=== PATIENT | female | born 1945 | race Caucasian/White ===

== ENCOUNTER 2017-10-15 07:32 | Emergency (ER) | payer OTHER, MEDICARE ==
[~2017-10-15] VITALS: Ht 147.3 cm; Wt 53.1 kg
[2017-10-15 07:36] VITALS: BP 121/77
[2017-10-15 08:09] LABS: MEAN CORPUSCULAR HGB 30.3 PG (27.0-31.0)
[2017-10-15 08:12] LABS: HEMATOCRIT 39.9 % (37-47); MEAN CORPUSCULAR HGB CONC 32.3 G/DL (33.0-37.0); MEAN PLATELET VOLUME 7.7 FL (7.4-10.4); PLATELET COUNT 78 /CUMM (130-400); RBC DISTRIBUTION WIDTH 13.1 % (11.5-14.5); RED BLOOD CELL CT 4.25 /CUMM (4.20-5.40)
[2017-10-15 08:18] LABS: WHITE BLOOD CELL COUNT 55.6 /CUMM (4.8-10.8)
--- NOTE | 2017-10-15 08:55 | ED HEAD/FACIAL INJ COMPLAINT ---
History of Present Illness General Chief Complaint: Fall Stated Complaint: FALL 30MINS PRIOR +HEADSTRIKE -LOC Source: patient, family, old records, Epic Exam Limitations: no limitations Vital Signs & Intake/Output Vital Signs & Intake/Output Vital Signs Date Time Temp Pulse Resp B/P B/P Pulse O2 O2 Flow FiO2 Mean Ox Delivery Rate 10/15 0904 98.6 05/ 0736 98.6 86 18 121/77 98 Room Air Allergies Coded Allergies: NO KNOWN ALLERGIES (12/01/10) Triage Note: 71 YO FEAMLE TO TRIAGE C/O FALL OUT OF BED THIS AM. STATES +HEADSTRIKE. DENIES LOC. C/O PAIN TO L SIDE OF HEAD AND L RIB AREA. DENIES SOB. PT NOT ONBLOOD THINNERS Triage Nurses Notes Reviewed? yes Onset: Just prior to arrival Severity: mild Location: frontal Method of Injury: direct blow, fall Loss of Consciousness: no loss of consciousness Associated Symptoms: headaches LMP (ages 10-50): post menopausal : No Patient currently breastfeeds: No HPI: Prior to admission patient rolled off her bed striking the left side of her head and body. She complains of headache with superficial abrasion to the left frontotemporal area. There was no loss consciousness fever chills nausea vomiting diarrhea abdominal pain chest pain shortness breath headache dysuria rash bleeding Past History Travel History Traveled to [place] past 21 day No Medical History Any Pertinent Medical History? see below for history Endocrine: diabetes, hypothyroidism Blood Disorders: CLL. WBC [id number] Surgical History Surgical History: non-contributory Psychosocial History What is your primary language Malay Tobacco Use: Never used Family History Hx Contributory? No Review of Systems Review of Systems Constitutional: Reports: no symptoms. EENTM: Reports: no symptoms. Respiratory: Reports: no symptoms. Cardiovascular: Reports: no symptoms. GI: Reports: no symptoms. Genitourinary: Reports: no symptoms. Musculoskeletal: Reports: no symptoms. Skin: Reports: see HPI. Neurological/Psychological: Reports: see HPI, headache. Hematologic/Endocrine: Reports: no symptoms. Immunologic/Allergic: Reports: no symptoms. All Other Systems: Reviewed and Negative Physical Exam Physical Exam General Appearance: well developed/nourished, mild distress Head: evidence of injury (abrasion left frontotemporal) Eyes: Bilateral: normal appearance, PERRL, EOMI. Ears, Nose, Throat: normal pharynx, normal ENT inspection, hearing grossly normal Neck: normal inspection, supple Respiratory: normal breath sounds Cardiovascular: regular rate/rhythm Gastrointestinal: soft, non-tender Back: normal inspection Extremities: normal inspection, normal range of motion, no edema Psychiatric: awake, alert, oriented x 3 Cranial Nerves: normal hearing, normal speech, PERRL Coordination/Gait: normal finger to nose, normal gait Motor/Sensory: no motor/sensory deficits Reflexes: 2+: bicep (R), bicep (L). Skin: intact, normal color, warm/dry Lymphatic: no anterior cervical jacob Progress Differential Diagnosis: ICH Plan of Care: Orders Procedure Date/time Status COMPREHENSIVE METABOLIC PANEL 10/15 749 Complete CBC WITHOUT DIFFERENTIAL 10/15 749 Complete Laboratory Tests 10/15/17 0800: Anion Gap 10, Estimated GFR > 60, BUN/Creatinine Ratio 40.0 H, Glucose 151 H, Calcium 8.8, Total Bilirubin 0.5, AST 31, ALT 23, Alkaline Phosphatase 68, Total Protein 6.8, Albumin 4.0, Globulin 2.8, Albumin/Globulin Ratio 1.4, CBC w Diff MAN DIFF ORDERED, RBC 4.25, MCV 94.0, MCH 30.3, MCHC 32.3 L, RDW 13.1, MPV 7.7, Gran % 7.0 L, Lymphocytes % 86.9 H, Monocytes % 3.1, Eosinophils % 0.2, Basophils % 2.8 H, Absolute Granulocytes 3.9, Absolute Lymphocytes 48.4 H, Absolute Monocytes 1.7 H, Absolute Eosinophils 0.1, Absolute Basophils 1.6, Platelet Estimate DECREASED, Normocytic RBCs VERIFIED, Normochromic RBCs VERIFIED Diagnostic Imaging: Viewed by Me: CT Scan. Discussed w/RAD: CT Scan. Radiology Impression: Unremarkable CT scan of the head. No evidence of acute territorial infarct or hemorrhage. Departure Departure Time of Disposition: 922 Disposition: HOME OR SELF CARE Condition: Stable Clinical Impression Primary Impression: Minor head injury without loss of consciousness Secondary Impressions: CLL (chronic lymphocytic leukemia), Fall at home Referrals: Jason العلي,Ramone Sanchez MD,Stacy Rivas (PCP/Family) Departure Forms: Customer Survey General Discharge Information
--- NOTE | 2017-10-15 09:02 | CT SCAN REPORT ---
EXAMINATION: CT HEAD WITHOUT CONTRAST CLINICAL INFORMATION: Left head strike after falling out of bed. COMPARISON: CT head 08/01/2012. TECHNIQUE: Contiguous axial imaging was performed from the skull base to vertex without intravenous administration of contrast. DLP: 604.67 mGy-cm FINDINGS: There is no acute intracranial hemorrhage or abnormal extra-axial collection. No intracranial mass effect or midline shift. Lateral and third ventricles are normal. No hydrocephalus. Stock-white matter differentiation is grossly preserved and there is no evidence of acute territorial infarct. The calvarium and skull base are intact. Mastoid air cells and middle ear cavities are well aerated. Visualized paranasal sinuses are well-aerated. IMPRESSION: Unremarkable CT scan of the head. No evidence of acute territorial infarct or hemorrhage.
== END 2017-10-15 09:42 ==
LOC: ERH 07:32
PROVIDERS: Emergency Medicine
DX: S09.90XA Unspecified injury of head, initial encounter (principal); C91.10 Chronic lymphocytic leukemia of B-cell type not having achieved remission; W06.XXXA Fall from bed, initial encounter; Y92.9 Unspecified place or not applicable; Y93.9 Activity, unspecified